=== PATIENT | male | born 1970 | race Caucasian/White ===

== ENCOUNTER 2019-05-10 10:48 | Emergency (ER) | payer BC ==
[~2019-05-10] VITALS: Ht 175.3 cm; Wt 100.0 kg
[2019-05-10 13:19] VITALS: BP 118/77
== END 2019-05-10 13:21 | disposition home or self-care (01) ==
LOC: ER 11:35
DX: J11.1 Influenza due to unidentified influenza virus with other respiratory manifestations (principal)
CPT/HCPCS: 71045; 87804; 99284